=== PATIENT | female | born 1925 | race Caucasian/White ===

== ENCOUNTER 2016-11-24 07:56 | Emergency (ER) | payer MEDICARE, OTHER ==
--- NOTE | 2016-11-24 09:34 | RAD ---
AP PELVIS: HISTORY: Pelvic pain. 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 Femoral head contours are normal. No fracture or osseous lesion seen involving the pelvis. IMPRESSION: No acute abnormality identified. POS: [facility]
--- NOTE | 2016-11-24 09:34 | RAD ---
LUMBAR SPINE 3 VIEWS: HISTORY: Back pain. FINDINGS/IMPRESSION: Comparison is made with exam dated 11/08/15. Degenerative changes are again noted. No fracture, subluxation, or bony destruction is identified. Vascular calcification is present. POS: [facility]
--- NOTE | 2016-11-24 09:36 | RAD ---
LEFT KNEE 4 VIEWS: HISTORY: Left knee joint pain. FINDINGS/IMPRESSION: There are mild degenerative changes in the left knee joint. No fracture, dislocation, or bony destr uction is seen. POS: [facility]
[2016-11-24 09:41] LABS: Bacteria/HPF 3+ HPF (None Seen); Bilirubin Negative (Negative); Blood, Urine Negative (Negative); Clarity Hazy (Clear); Glucose, Urine (Dipstick) Negative (Negative); Leukocyte Trace (Negative); Nitrite Negative (Negative); Protein, Urine (Dipstick) Negative (Neg-Trace); RBC/HPF 0-3 HPF (0-3); Renal Epithelial 0-3 HPF (0-3); Specific Gravity, Urine 1.015 (1.005-1.030); Transitional Epithelial 0-3 HPF (0-3); Urobilinogen 0.2 mg/dL (0.2-1.0); WBC/HPF 21-50 HPF (0-3); Yeast-All Forms Rare HPF (None Seen)
[2016-11-24] MEDS ORDERED: Sulfameth/Trimethoprim DS 800-160mg TAB ONE (10:00)
== END 2016-11-24 10:00 | disposition home or self-care (01) ==
LOC: MADERS 07:56
DX: M19.90 Unspecified osteoarthritis, unspecified site (principal); N39.0 Urinary tract infection, site not specified; J44.9 Chronic obstructive pulmonary disease, unspecified; I10 Essential (primary) hypertension; Z87.891 Personal history of nicotine dependence
CPT/HCPCS: 72100; 72170; 81001; 87086

== ENCOUNTER 2017-11-02 19:47 | Emergency (ER) | payer MEDICARE, OTHER ==
[~2017-11-02 19:47] MED LIST: Sodium Chloride 0.9% 100 ML BAG ONE
--- NOTE | 2017-11-02 21:02 | RAD ---
TWO VIEW CHEST: 11/02/17 HISTORY: Fever. COMPARISON: 04/03/16. Diffuse increased interstitial markings appear stable. Apical pleural thickening and apical opacities appears stable. Heart size is upper normal and stable. No new infiltrate. Numerous surgical clips ov erlie the right breast. Aortic calcification. IMPRESSION: There appear to be chronic lung parenchymal changes which appear stable from 04/03/16. POS: [facility]
[2017-11-02 21:05] LABS: ALT (SGPT) 17 U/L (8-55); AST (SGOT) 19 U/L (5-34); Albumin 3.7 g/dL (3.4-4.8); Alkaline Phosphatase 68 U/L (40-150); Anion Gap 21 mmol/L (10-20); BUN (Urea Nitrogen) 14 mg/dL (9.8-20.1); Bilirubin, Total 0.5 mg/dL (0.2-1.2); Calc. Creatinine Clearance 0 mL/min (70-130); Calcium 9.1 mg/dL (7.8-10.44); Carbon Dioxide 25 mmol/L (23-31); Chloride 99 mmol/L (98-107); Estimated GFR-MDRD 64; Globulin 3.1 g/dL (2.4-3.5); Glucose 160 mg/dL (83-110); Potassium 3.6 mmol/L (3.5-5.1); Protein, Total 6.8 g/dL (6.0-8.3); Sodium 141 mmol/L (136-145)
[2017-11-02 21:06] LABS: CKMB 0.9 ng/mL (0-6.6); Mean Corpuscular HGB CONC 31.8 g/dL (32.0-36.0); Mean Corpuscular Hemoglobin 27.3 pg (27.0-31.0); Mean Corpuscular Volume 85.7 fL (78.0-98.0); Mean Platelet Volume 9.2 fL (7.4-10.4); Platelet Count 276 thou/uL (130-400); Red Blood Cell (RBC) Count 4.77 mill/uL (4.20-5.40); Troponin I 0.021 ng/mL (< 0.028); White Blood Cell (WBC) Count 11.9 thou/uL (4.8-10.8)
[2017-11-02 21:07] LABS: Eosinophils 2 % (0-10); Lymphocytes 10 % (21-51); MDiff Complete? YES; Monocytes 8 % (0-10); Neutrophil 76 % (42-75); PLT Morphology Comment Appears Adequate; RBC Morphology Normal; Reactive Lymphocytes 4 % (0-10)
[2017-11-02 21:12] LABS: Bilirubin Small (Negative); Blood, Urine Negative (Negative); Clarity Slightly Cloudy (Clear); Glucose, Urine (Dipstick) Negative (Negative); Leukocyte Moderate (Negative); Nitrite Negative (Negative); Protein, Urine (Dipstick) 30 mg/dL (Neg-Trace); Urobilinogen 0.2 mg/dL (0.2-1.0); pH, Urine 5.5 (5.0-9.0)
[2017-11-02 21:17] LABS: Bacteria/HPF Rare-Few HPF (None Seen)
[2017-11-02] MEDS ORDERED: Piperacillin/Tazobactam 3.375 GM VIAL ONE (21:44)
[2017-11-02] MEDS ORDERED: Acetaminophen 500 MG TAB ONE (22:01)
== END 2017-11-02 22:25 | disposition short-term general hospital (02) ==
LOC: MADERS 19:47
DX: A41.9 Sepsis, unspecified organism (principal); N39.0 Urinary tract infection, site not specified; I10 Essential (primary) hypertension; J44.9 Chronic obstructive pulmonary disease, unspecified; Z86.73 Personal history of transient ischemic attack (TIA), and cerebral infarction without residual deficits; Z87.891 Personal history of nicotine dependence; Z79.899 Other long term (current) drug therapy
CPT/HCPCS: 36415; 51701; 71046; 80053; 81003; 81015; 82553; 83605; 84484; 85025; 85379; 87040; 87086; 93005; 94760; 96365; J2543; J7050